=== PATIENT | female | born 1975 | race Caucasian/White ===

== ENCOUNTER 2023-03-20 13:01 | Outpatient (OUT) | payer BC, SELFPAY | END 2023-03-20 13:02 | disposition home or self-care (01) | LOC: PST 13:01 | PROVIDERS: PCP Nurse Practitioner; Visit Provider Surgery | DX: Z01.818 Encounter for other preprocedural examination (principal); Z86.010 Personal history of colon polyps ==

== ENCOUNTER 2023-03-26 06:29 | Day surgery (SDC) | payer BC, SELFPAY ==
--- NOTE | 2023-03-26 | OP_ITS ---
OPERATION DATE: ??03/26/2023 PREOPERATIVE DIAGNOSIS:? Personal history of tubulovillous adenoma of the rectum. POSTOPERATIVE DIAGNOSIS:? Normal colonoscopy to cecum. PROCEDURE:? Colonoscopy to cecum. SURGEON:? Alexandre Trimble M.D. ANESTHESIA:? Monitored anesthesia care. ESTIMATED BLOOD LOSS:? Zero. INDICATIONS AND CONSENT:? Patient is a 47-year-old female with history of tubulovillous adenoma on screening colonoscopy one year ago.? It was 1.5 cm within the rectum.? She now presents for surveillance colonoscopy.? Indications, risks, benefits, alternatives of proceeding with colonoscopy were explained extensively to the patient, including the risks of bleeding, colon perforation or anesthetic complications. ?All of her questions were answered.? Informed consent was obtained. PROCEDURE:? Patient brought to the operating room, placed in the left lateral decubitus position.? Monitored anesthesia care was provided.? Rectal exam was performed which showed no masses or blood.? The scope was inserted into the anal canal.? Under direct visualization was advanced.? It was advanced to the cecum where cecal markings were clearly identified.? Upon withdrawal of the scope, mucosal surfaces were carefully examined.? There were no mass lesions or polyps.? No inflammatory changes or ulcerations.? No significant diverticulosis.? There was noted to be a good prep.? The scope was retroflexed in the anal canal.? There was no significant hemorrhoidal disease.? No events of recurrent polyps.? Scope was then withdrawn.? Patient tolerated procedure well, was sent to recovery room in good condition. Follow up colonoscopy should be in three years for surveillance. CC:? Rosie Cortes, [facility]
[2023-03-26 06:52] LABS: HCG Qualitative NEGATIVE (NEGATIVE)
[2023-03-26 06:55] VITALS: BP 132/91; PULSE 108; RESP 18; TEMP 35.2; O2SAT 96; BMI 40.3
[2023-03-26] MEDS: LACTATED RINGER'S SOLUTION 1,000 ML 50 ML IV (07:07)
[2023-03-26 07:53] VITALS: BP 123/71; PULSE 67; RESP 13; TEMP 36.2; O2SAT 98
[2023-03-26 08:08] VITALS: BP 124/91; PULSE 67; RESP 16; O2SAT 99
[2023-03-26 08:20] VITALS: BP 158/93; PULSE 73; RESP 16; O2SAT 97
== END 2023-03-26 08:23 | disposition home or self-care (01) ==
PROVIDERS: PCP Nurse Practitioner; Visit Provider Surgery
PROC: (CPT 45378; principal; 2023-03-26 07:30)
DX: Z86.010 Personal history of colon polyps (principal); K21.9 Gastro-esophageal reflux disease without esophagitis; E66.01 Morbid (severe) obesity due to excess calories; Z68.41 Body mass index [BMI] 40.0-44.9, adult; Z90.49 Acquired absence of other specified parts of digestive tract
CPT/HCPCS: 45378; 36415; 84703; J2704

== ENCOUNTER 2023-09-10 08:01 | Outpatient (OUT) | payer BC, SELFPAY ==
[2023-09-10 08:29] LABS: Basophils Absolute Auto 0.1 10^3/uL (0.0-0.1); Basophils Percent Auto 0.8 % (0.2-2.0); Eosinophils Absolute Auto 0.3 10^3/uL (0.0-0.7); Eosinophils Percent Auto 3.6 % (0.9-7.0); Hematocrit 38.1 % (36.0-48.0); Hemoglobin 12.2 g/dL (12.0-16.0); Immature Granulocytes Abs Auto 0.02 10^3/uL (0.00-0.03); Immature Granulocytes Pct Auto 0.2 % (0.0-0.5); Lymphocytes Absolute Auto 3.1 10^3/uL (1.2-3.8); Lymphocytes Percent Auto 33.4 % (20.5-60.0); Mean Corpuscular Hemoglobin 27.6 pg (26.7-34.0); Mean Corpuscular Volume 86.2 fL (81.0-99.0); Mean Platelet Volume 9.5 fL (9.5-13.5); Monocytes Absolute Auto 0.6 10^3/uL (0.3-0.8); Neutrophils Absolute Auto 5.2 10^3/uL (1.4-6.5); Platelet Count 436 10^3/uL (150-450); Red Blood Count 4.42 10^6/uL (4.20-5.40); Red Cell Distribution Width 12.7 % (11.0-15.0); White Blood Count 9.3 10^3/uL (4.0-11.0)
[2023-09-10 08:31] LABS: Alanine Aminotransferase 31 U/L (14-59); Albumin Globulin Ratio 0.7; Albumin Level 3.5 g/dL (3.4-5.0); Alkaline Phosphatase 91 U/L (46-116); Anion Gap 14.3; Aspartate Amino Transferase 25 U/L (15-37); BUN Creatinine Ratio 12.6; Bilirubin Total 0.3 mg/dL (0.2-1.0); Calcium 9.3 mg/dL (8.5-10.1); Carbon Dioxide 27.7 mmol/L (21.0-32.0); Chloride 101 mmol/L (98-107); Estimated GFR (African America >60 (>=60); Estimated GFR (Non-African Ame 57 (>=60); Globulin 4.8 g/dL; Glucose 96 mg/dL (74-106); Sodium 139 mmol/L (136-145); Total Protein 8.3 g/dL (6.4-8.2)
[2023-09-10 08:32] LABS: Chol HDL Ratio 3.3; Cholesterol 170 mg/dL (<=200); HDL Cholesterol 51 mg/dL (40-60); LDL Cholesterol Calculated 95.4 mg/dL; Triglycerides 118 mg/dL (<=150); VLDL CHOLESTEROL 23.6 mg/dL
== END 2023-09-10 08:02 | disposition home or self-care (01) ==
LOC: LAB 08:02
PROVIDERS: PCP Nurse Practitioner
DX: K21.9 Gastro-esophageal reflux disease without esophagitis (principal); Z13.6 Encounter for screening for cardiovascular disorders
CPT/HCPCS: 36415; 80053; 80061; 85025

== ENCOUNTER 2023-09-12 12:50 | Outpatient (OUT) | payer BC, SELFPAY ==
--- NOTE | 2023-09-12 12:52 | MM_ITS ---
Patient Name: ALFRED JAY MR#: [id number] : 1975 Exam Date: 09/12/2023 Ordering Doctor: Adri Crump RADIOLOGY REPORT PROCEDURE: MM TOMOSYNTHESIS SCREENING BI COMPARISON: MG MAMM DIAGNOSTIC 3D MARCO CAD, 06/26/2022. MG MAMM DX 3D LT CAD, 10/22/2021. MG MAMM LT DIAG FU, 04/27/2021. MG MAMM SCREEN 3D MARCO CAD, 04/16/2021. INDICATIONS: Screening Calculator Name NCI Breast Cancer Risk Assessment Tool 5 Year Breast Cancer Risk 1.80% Lifetime Breast Cancer Risk 18.00% Personal Breast Cancer No Personal Ovarian Cancer No Treatments None Family Cancers Mother with breast cancer at age 40; Grandmother-maternal with breast cancer at age 65. LOCATION: [facility] BREAST COMPOSITION: Scattered areas fibroglandular density. FINDINGS: DIAGNOSTIC CATEGORY 0--INCOMPLETE: NEED ADDITIONAL IMAGING EVALUATION. RIGHT BREAST: New 10 x 9 mm partially circumscribed mass within the anterior upper inner quadrant. Spot magnification views and ultrasound evaluation recommended. LEFT BREAST: No significant suspicious finding. Scattered benign-appearing lymph nodes are present. No significant change has occurred. RECOMMENDATIONS: ADDITIONAL MAMMOGRAPHIC VIEWS REQUIRED: RIGHT BREAST - RIGHT CRANIOCAUDAL SPOT MAGNIFICATION VIEW - RIGHT OBLIQUE SPOT MAGNIFICATION VIEW - ULTRASOUND: RIGHT BREAST PLEASE NOTE: A NORMAL MAMMOGRAM DOES NOT EXCLUDE THE POSSIBILITY OF BREAST CANCER. A CLINICALLY SUSPICIOUS PALPABLE LUMP SHOULD BE BIOPSIED. Dictated by: Iggy Holbrook M.D. on 09/12/2023 at 15:19 Approved by: Iggy Holbrook M.D. on 09/12/2023 at 15:22
== END 2023-09-12 12:51 | disposition home or self-care (01) ==
LOC: MAMMO 12:50
PROVIDERS: PCP Nurse Practitioner
DX: Z12.31 Encounter for screening mammogram for malignant neoplasm of breast (principal); Z80.3 Family history of malignant neoplasm of breast; N63.12 Unspecified lump in the right breast, upper inner quadrant
CPT/HCPCS: 77063; 77067

== ENCOUNTER 2023-09-23 09:54 | Outpatient (OUT) | payer BC, SELFPAY ==
[2023-09-24 15:09] LABS: Free Kappa Lt Chains,S 29.6 mg/L (3.3-19.4); Free Lambda Lt Chains,S 17.3 mg/L (5.7-26.3); Kappa/Lambda Ratio,S 1.71 (0.26-1.65)
== END 2023-09-23 09:55 | disposition home or self-care (01) ==
LOC: LAB 09:57
DX: R77.9 Abnormality of plasma protein, unspecified (principal); N18.2 Chronic kidney disease, stage 2 (mild)
CPT/HCPCS: 36415; 83521

== ENCOUNTER 2023-09-25 13:55 | Outpatient (OUT) | payer BC, SELFPAY ==
--- NOTE | 2023-09-25 13:58 | MM_ITS ---
Patient Name: ALFRED JAY MR#: [id number] : 1975 Exam Date: 09/25/2023 Ordering Doctor: Adri Crump RADIOLOGY REPORT PROCEDURE: MM DIAGNOSTIC MAMMO UNILAT RT, 09/25/2023, 13:03 US BREAST RT LIMITED, 09/25/2023, 14:16 COMPARISON: MM TOMOSYNTHESIS SCREENING BI, 09/12/2023. MG MAMM DIAGNOSTIC 3D MARCO CAD, 06/26/2022. MG MAMM DX 3D LT CAD, 10/22/2021. MG MAMM LT DIAG FU, 04/27/2021. INDICATIONS: abnormal mammogram right breast R92.8 Calculator Name NCI Breast Cancer Risk Assessment Tool 5 Year Breast Cancer Risk 1.80% Lifetime Breast Cancer Risk 18.00% Personal Breast Cancer No Personal Ovarian Cancer No Treatments None Family Cancers Mother with breast cancer at age 40; Grandmother-maternal with breast cancer at age 65. LOCATION: [facility] BREAST COMPOSITION: Scattered areas fibroglandular density. FINDINGS: DIAGNOSTIC CATEGORY 3--PROBABLY BENIGN FINDING. THE FOLLOWING FINDING(S) HAS A HIGH PROBABILITY OF A BENIGN ETIOLOGY: RIGHT BREAST: Spot magnification views demonstrate persistence of a 10 mm partially circumscribed lesion within the upper inner quadrant, mid breast. Ultrasound evaluation demonstrates a thin walled anechoic 9 x 5 x 4 mm structure at the 1 o'clock position 7.3 cm from the nipple. No internal blood flow on color Doppler. While this favors a benign simple cysts, there is no increased through transmission. As a precautionary measure follow-up mammography and ultrasound evaluation of the right breast in 6 months is recommended to document stability. RECOMMENDATIONS: SHORT TERM FOLLOW-UP DIAGNOSTIC MAMMOGRAM RIGHT BREAST IN 6 MONTHS. FOLLOW-UP ULTRASOUND RIGHT BREAST IN 12 MONTHS. PLEASE NOTE: A NORMAL MAMMOGRAM DOES NOT EXCLUDE THE POSSIBILITY OF BREAST CANCER. A CLINICALLY SUSPICIOUS PALPABLE LUMP SHOULD BE BIOPSIED. Dictated by: Iggy Holbrook M.D. on 09/25/2023 at 14:27 Approved by: Iggy Holbrook M.D. on 09/25/2023 at 14:35
== END 2023-09-25 13:56 | disposition home or self-care (01) ==
LOC: MAMMO 13:55
DX: R92.8 Other abnormal and inconclusive findings on diagnostic imaging of breast (principal); Z80.3 Family history of malignant neoplasm of breast
CPT/HCPCS: 76642; 77065

== ENCOUNTER 2023-11-04 07:43 | Outpatient (RCR) | payer BC, SELFPAY ==
[2023-11-06 14:10] LABS: Albumin 3.8 g/dL (2.9-4.4); Alpha-1-Globulin 0.2 g/dL (0.0-0.4); Alpha-2-Globulin 0.8 g/dL (0.4-1.0); Gamma Globulin 1.5 g/dL (0.4-1.8); Protein, Total 7.6 g/dL (6.0-8.5)
[2023-11-06 16:10] LABS: Free Kappa Lt Chains,S 26.5 mg/L (3.3-19.4); Free Lambda Lt Chains,S 18.1 mg/L (5.7-26.3); Kappa/Lambda Ratio,S 1.46 (0.26-1.65)
[2023-11-09 08:10] LABS: Immunoglobulin A, Qn, Serum 405 mg/dL (87-352); Immunoglobulin E, Total 48 IU/mL (6-495); Immunoglobulin G, Qn, Serum 1543 mg/dL (586-1602); Immunoglobulin M, Qn, Serum 169 mg/dL (26-217)
== END 2023-11-21 23:59 | disposition home or self-care (01) ==
LOC: INF 07:43
PROVIDERS: Visit Provider Internal Medicine Hematology & Oncology
DX: R77.9 Abnormality of plasma protein, unspecified (principal); N18.2 Chronic kidney disease, stage 2 (mild); Z90.49 Acquired absence of other specified parts of digestive tract; K21.9 Gastro-esophageal reflux disease without esophagitis; Z80.3 Family history of malignant neoplasm of breast
CPT/HCPCS: 36415; 82784; 82785; 83521; 84155; 84165; G0463

== ENCOUNTER 2023-11-25 07:27 | Outpatient (RCR) | payer BC, SELFPAY | END 2023-11-25 15:25 | disposition home or self-care (01) | LOC: INF 07:27 | PROVIDERS: Visit Provider Internal Medicine Hematology & Oncology | DX: R77.9 Abnormality of plasma protein, unspecified (principal); N18.2 Chronic kidney disease, stage 2 (mild); Z15.09 Genetic susceptibility to other malignant neoplasm | CPT/HCPCS: G0463 ==

== ENCOUNTER 2024-03-25 14:23 | Outpatient (OUT) | payer OTHER, SELFPAY ==
--- NOTE | 2024-03-25 14:26 | MM_ITS ---
Patient Name: ALFRED JAY MR#: [id number] : 1975 Exam Date: 03/25/2024 Ordering Doctor: Adri Crump RADIOLOGY REPORT PROCEDURE: MM TOMOSYNTHESIS DIAGNOSTIC RT COMPARISON: MM DIAGNOSTIC MAMMO UNILAT RT, 09/25/2023. INDICATIONS: Abnormal Mammogram Right Breast Calculator Name NCI Breast Cancer Risk Assessment Tool 5 Year Breast Cancer Risk 1.80% Lifetime Breast Cancer Risk 18.00% Personal Breast Cancer No Personal Ovarian Cancer No Treatments None Family Cancers Mother with breast cancer at age 40; Grandmother-maternal with breast cancer at age 65. LOCATION: [facility] BREAST COMPOSITION: There are scattered areas of fibroglandular density. FINDINGS: DIAGNOSTIC CATEGORY 3--PROBABLY BENIGN FINDING. THE FOLLOWING FINDING(S) HAS A HIGH PROBABILITY OF A BENIGN ETIOLOGY: Stable 7.9 x 5.9 mm well circumscribed nodule upper inner quadrant. One additional follow up in 6 months with mammogram and ultrasound is recommended. RECOMMENDATIONS: SHORT TERM FOLLOW-UP DIAGNOSTIC MAMMOGRAM BILATERAL BREAST IN 6 MONTHS. SHORT TERM FOLLOW-UP ULTRASOUND RIGHT BREAST IN 6 MONTHS. . PLEASE NOTE: A NORMAL MAMMOGRAM DOES NOT EXCLUDE THE POSSIBILITY OF BREAST CANCER. A CLINICALLY SUSPICIOUS PALPABLE LUMP SHOULD BE BIOPSIED. Dictated by: Devon Melton MD on 03/25/2024 at 15:29 Approved by: Devon Melton MD on 03/25/2024 at 15:37
== END 2024-03-25 14:24 | disposition home or self-care (01) ==
LOC: MAMMO 14:23
DX: R92.8 Other abnormal and inconclusive findings on diagnostic imaging of breast (principal); Z80.3 Family history of malignant neoplasm of breast
CPT/HCPCS: 77065; G0279